=== PATIENT | male | born 1970 | race Caucasian/White ===

== ENCOUNTER 2023-03-14 06:27 | Day surgery (SDC) | payer BC, OTHER ==
[2023-03-09 09:25] LABS: Absolute Lymphocytes (CBC) 2.9 K/uL (0.7-4.9); Hematocrit 43.3 % (39.6-49.0); Lymphocytes % 42.2 % (15.3-44.8); MCV 93.2 fL (80-100); MPV 8.2 fL (7.6-11.3); RBC Red Blood Cell Count 4.64 M/uL (4.33-5.43)
[2023-03-09 09:38] LABS: Potassium 4.2 mEq/L (3.5-5.1)
--- NOTE | 2023-03-09 11:49 | RAD REPORT ---
EXAM DESCRIPTION: RAD - Chest Pa And Lat (2 Views) - 03/09/2023 9:14 am CLINICAL HISTORY: Pre op pending hernia repair. Separate COMPARISON: CHEST PA AND LAT 2 VIEW dated 01/31/2008 TECHNIQUE: PA and lateral views of the chest were obtained. FINDINGS: The lungs are clear. Heart size is normal and central vasculature is within normal limits. No pleural effusion or pneumothorax seen. No acute bony finding noted. IMPRESSION: No acute cardiopulmonary process.
--- NOTE | 2023-03-11 11:20 | EKG ---
Test Date: 2023-03-09 Test Time: 08:57:06 Metal Finisher: APRIL MEASUREMENT RESULTS: Intervals: Rate: 71 MO: 166 QRSD: 96 QT: 398 QTc: 432 [place]: P: 47 MO: 166 QRS: 56 T: 49 INTERPRETIVE STATEMENTS: Normal sinus rhythm Normal ECG Compared to ECG 01/31/2008 06:35:21 No significant changes Electronically Signed On 03-11-23 11:17:51 CDT by Iain Ravi
[2023-03-14] MEDS: Ringers Lactate 1,000 ML IV ONE (07:00)
[2023-03-14] MEDS ORDERED: propofoL 200 MG/20 ML VIAL IV ONE (07:17)
[2023-03-14] MEDS ORDERED: ROCURONIUM 50 MG/5 ML VIAL IV ONE (07:17)
[2023-03-14] MEDS ORDERED: FENTANYL CITR 100 MCG/2 ML ONE (07:17)
[2023-03-14] MEDS ORDERED: MIDAZOLAM HCL 2 MG/2 ML INJ ONE (07:17)
[2023-03-14] MEDS ORDERED: ONDANSETRON 4 MG/2 ML VIAL ONE (07:21)
[2023-03-14] MEDS ORDERED: LIDOCAINE 2% MPF 5 ML VIAL ONE (07:21)
[2023-03-14] MEDS: CEFAZOLIN SODIUM 1 GM/VIAL ONE ×2 (07:26→07:55)
[2023-03-14] MEDS: BUPIVACAINE 0.5% PF 10 ML VIAL ONE ×2 (07:27→08:20)
[2023-03-14] MEDS ORDERED: KETOROLAC 30 MG/ML INJ ONE (08:04)
[2023-03-14] MEDS ORDERED: GLYCOPYRROLATE 0.2 MG/ML SYR ONE (08:38)
[2023-03-14] MEDS ORDERED: Ringers Lactate 1,000 ML IV ONE (08:42)
[2023-03-14] MEDS ORDERED: Mastisol Adhesive Liq ONE (08:46)
[2023-03-14] MEDS ORDERED: MORPHINE 10 MG/ML VIAL ONE (08:51)
[2023-03-14] MEDS ORDERED: HYDROCODONE/APAP 7.5/325 MG TAB PO PRN (09:08)
--- NOTE | 2023-03-14 09:08 | P.OP ---
Date of Service: 03/14/23 Preop diagnosis: Umbilical hernia Postop diagnosis: Same Procedure performed: Laparoscopic assisted repair of umbilical hernia Surgeon: Pineda Aguirre MD Building Performance Specialist: None Estimated blood loss: Minimal Specimen: Hernia sac Findings: As above Anesthesia: General Complications: None Drains: None Fluids and blood products: Nonapplicable Disposition: Recovery room Operative note: Patient brought to the OR and placed in supine position. General anesthesia begun. Patient prepped and draped in usual sterile fashion. Marcaine 0.5% infiltrated locally. 15 blade used to make a 1 cm left upper quadrant incision. Subcutaneous tissue divided and fascia identified and divided. #1 Vicryl stay suture placed into the fascia. Peritoneal cavity entered with sharp and blunt dissection. 12 mm trocar placed into the peritoneal cavity under direct vision. Pneumoperitoneum established. Laparoscopy revealed a small umbilical hernia which was reducible. 5 mm trocar placed in the left lower quadrant. 2 cm incision made below the umbilicus. Subcutaneous tissue divided. Hernia sac and contents identified and excised. 1.5 cm defect remained. Ventralex medium in size mesh placed. #1 PDS used to secure the mesh and closed the fascial defect. This was done via a [id number]-[id number] suture. Laparoscopy reestablished. Pro tack used to secure the mesh to the peritoneal surface. Complete coverage of the hernia defect accomplished. All trocars removed under direct vision. Stay sutures tied to each other to reapproximate the fascial defect. Subcutaneous wound irrigated and bleeding controlled cautery. 3-0 chromic used to approximate subcu tissue and close skin. Sterile dressing applied. Patient awakened and taken to recovery room in good general condition. CC: Dr. Amador' office
[2023-03-14] MEDS ORDERED: MORPHINE 4 MG/ML SYR ONE (09:29)
[2023-03-14 09:37] VITALS: TEMP 97.1
[2023-03-14 10:04] VITALS: BP 114/76; O2SAT 96
[2023-03-14] MEDS ORDERED: HYDROCODONE/APAP 7.5/325 MG TAB ONE (10:21)
== END 2023-03-14 10:38 | disposition home or self-care (01) ==
LOC: OR 06:27
PROVIDERS: ATTEND Surgery
PROC: 0WUF4JZ Supplement Abdominal Wall with Synthetic Substitute, Percutaneous Endoscopic Approach (ICD-10-PCS; principal; 2023-03-14 07:30)
DX: K42.9 Umbilical hernia without obstruction or gangrene (principal)
CPT/HCPCS: 93005; 85025; 80048; 36415; 88302; 71046; 49591; J2704; J2001; J2250; J3010; J2405; J7120 ×2; J0690